=== PATIENT | female | born 1940 | race Caucasian/White ===

== ENCOUNTER → 2017-11-24 18:26 | Outpatient (REF) | payer OTHER, SELFPAY ==
[2017-11-24 19:26] LABS: HCT 38.3 % (36.0-46.0); HGB 12.5 g/dL (12.0-15.5); Mean Corp. HGB Concentration 32.6 g/dL (32.0-36.0); Mean Corpuscular Hemoglobin 30.3 pg (27.0-33.0); Mean Corpuscular Volume 92.7 fL (80-95); Mean Platelet Volume 11.2 fL (8.0-11.0); Platelet Count 213 x1000/uL (130-400); RBC 4.13 m/cumm (4.00-5.20); RBC Distribution Width 13.3 % (11.7-14.6); White Blood Cell Count 5.93 k/cumm (4.4-10.8)
[2017-11-24 19:35] LABS: BUN 37 mg/dL (7-18); CREATININE 1.32 mg/dL (0.55-1.02); Chloride 106 mmol/L (98-107); Estimated GFR 38.82 (mL/min/1.73m2); Glucose 86 mg/dL (70-100); Potassium 4.1 mmol/L (3.5-5.1); Sodium 142 mmol/L (136-145)
== END ==
LOC: NCHCN 18:26
PROVIDERS: PCP Nurse Practitioner Family; Visit Provider Nurse Practitioner Family
DX: N18.3 Chronic kidney disease, stage 3 (moderate) (principal); R23.8 Other skin changes; M54.30 Sciatica, unspecified side; J45.991 Cough variant asthma
CPT/HCPCS: 80048; 85027

== ENCOUNTER 2018-02-16 00:57 | Outpatient (CLI) | payer OTHER, SELFPAY ==
--- NOTE | 2018-02-16 11:18 | DI.US_ITS ---
SYMPTOM/DIAGNOSIS: CHRONIC KIDNEY DISEASE, H/O RENAL STONES, BILAT RENAL CYSTS , ? OBSTRUCTIVE UROPATHY, EVALUATE RENAL CYSTS RENAL ULTRASOUND: The kidneys are normal in size and shape. There is incidental note made of a small right pleural effusion. There is no evidence of hydronephrosis. There is a questionable right mid pole renal cortical calculus, non obstructing. There are 2.2 and 2.5 cm. in diameter simple cysts of the left kidney. Urinary bladder is nearly empty at about 18 cc's. CONCLUSION: Small pleural effusion on the right. No evidence of urinary tract obstruction. Small simple cysts of the left kidney noted.
[2018-02-16 19:24] LABS: Bilirubin Small (Negative); Blood Negative (Negative); Clarity Clear; Glucose Negative (Negative); Ketones Trace mg/dL (Negative); Leukocyte Esterase Negative (Negative); Nitrite Negative (Negative); Specific Gravity 1.025 (1.005-1.025); Urobilinogen 0.2 EU/dL (Up TO 0.2); pH 5.5 (5-8)
[2018-02-16 19:46] LABS: Bacteria Few HPF (Negative); C & S Indicated? No; Casts Negative LPF (Negative); Crystals Negative HPF (Negative); Epithelial Cells Rare HPF (Negative); Mucus Trace (Negative); Other Cells Negative (Negative); RBC 0-2 (0-2); WBC Negative HPF (0-5)
== END 2018-02-16 01:17 ==
PROVIDERS: Nurse Practitioner Family; PCP Nurse Practitioner Family; Visit Provider Internal Medicine
DX: N18.9 Chronic kidney disease, unspecified (principal); J90 Pleural effusion, not elsewhere classified; N28.1 Cyst of kidney, acquired; R30.0 Dysuria
CPT/HCPCS: 76770; 81003; 81015

== ENCOUNTER 2018-02-26 12:27 | Emergency (ER) | payer OTHER, SELFPAY ==
[2018-02-26 12:55] VITALS: BP 154/68; PULSE 58; RESP 18; TEMP 36.5; O2SAT 97
--- NOTE | 2018-02-26 13:15 | W.ED.GENAD ---
Discharge Plan Disposition Patient Disposition: HOME Condition: Fair Discharge Details Chief Complaint: Urinary Clinical Impression: Cystitis Primary Care Provider: Lila Ricardo ED Provider: Kamilah Henning Home Meds and New Rx's Prescriptions: No Action diltiazem HCl 120 MG tablet 120 mg PO DAILY RF: 0 meclizine 12.5 MG tablet 12.5 mg PO PRN RF: 0 loratadine 10 MG tablet 10 mg PO DAILY RF: 0 Citalopram Hydrobromide [Citalopram HBr] 40 MG tablet 40 mg PO DAILY RF: 0 metoprolol succinate 100 MG tablet extended release 24 hr 100 mg PO DAILY RF: 0 aspirin 81 MG tablet,delayed release (DR/EC) 81 mg PO DAILY RF: 0 hydrochlorothiazide 25 MG tablet 25 mg PO QAM RF: 0 omega-3 fatty acids-fish oil [Fish Oil] 1 EACH capsule 1 ea PO TID RF: 0 fhhgjxkw-atwix-kfm1-C-catalina-bor [Npsjdwfxzoa-Mctot-SSU Complex] 1 EACH tablet 1 ea PO BID RF: 0 albuterol sulfate 1.25 MG/3 ML solution for nebulization 1.25 mg Inhalation PRN PRNRF: 0 albuterol sulfate [Ventolin HFA] 8 GM HFA aerosol inhaler 2 puff Inhalation PRN PRNRF: 0 Discharge Data Discharge Date/Time-TO BE ENTERED AT DEPARTURE: 02/26/18 16:20 Medical Decision Making Patient is 77-year-old female, accompanied by significant other, with chief complaint of urinary tract infection. She reports she was seen by her primary care these complaints including bladder pressure, dysuria, hematuria, increased urgency and, at 1 week ago. Since that time she is placed on antibiotics. However, pending culture results, she was advised to stop these antibiotics. She reports that symptoms have progressively increased. Denies any vaginal discharge. States she is chronic, unchanged pain in her back. No CVA tenderness on exam. States that she felt like she may have had a fever 1 week ago but has been afebrile since then. She is currently afebrile. She appears nontoxic. Plan to obtain urinalysis for evaluation. Urinalysis is heavily contaminated. Discussed this with the patient. Plan to straight cath. Given the longevity of her symptoms, that she is not been experiencing increased frequency urgency, I am concerned that she may have cystitis, particularly as her recent urinalysis, performed last week by her primary care, did not suggest acute infection. She Was performed by nursing staff. Small leukocytes are noted but otherwise no findings to suggest infection. This will be sent for culture Consulted with Dr. Schmitz regarding my concerns for possible cystitis, patient's continued symptoms. He advised her history and lack of findings to suggest infection are consistent with cystitis. He advised placing the patient on ibuprofen. Patient will take daily ibuprofen to help with inflammatory source. He advised that if this is unsuccessful he will begin the patient on a bladder relaxant but that this would not be necessary today. Advised that Pyridium may also be used to help with symptomatic management. Advised patient follow-up with him in 1 week for reevaluation. Discussed this plan with the patient. She is in agreement. Patient be placed in a short term basis of ibuprofen. I advised that he should not be taken long-term secondary to her comorbidities. Encouraged hydration. Also advised the use of Pyridium. Patient's discharge was completed during the time of computer downtime and was hand written. She denied discussed new/worsening symptoms when to seek care urgently once again. She will contact Dr. Schmitz's office to schedule follow-up appointment. All of her questions and concerns were addressed and she is in agreement this plan. She will keep tomorrow's appointment with primary care to discuss other chronic conditions. HPI General Mode of arrival: ambulatory. Date/Time Provider Initiated Documentation: 02/26/18 13:12. Limitations to Documentation: no limitations. Information obtained by: patient and family (accompanied by ). History of Present Illness 77 year old F presents to the emergency department with the chief complaint of dysurea, described as mild, with intensity rated at 3. Quality is described as aching, and is localized to the abdomen (associated with times of urination). Patient reports no radiation. Patient started experiencing this week(s) and it has been constant. No relieving factors improve symptom(s), No exacerbating factors reported . Patient notes denies chest pain, cough, fever/chills, loss of appetite, nausea/vomiting and rash. Patient did receive the following treatments prior to arrival, other (was on abx last week, this was stopped by PCP) Related Data Home Medications Medication Instructions Recorded Confirmed albuterol sulfate 1.25 mg INHALATION PRN PRN 06/18/12 02/26/18 albuterol sulfate [Ventolin HFA] 2 puff INHALATION PRN PRN 06/18/12 02/26/18 aspirin 81 mg PO DAILY 06/18/12 02/26/18 rdgxasrk-wljao-jsn9-C-catalina-bor 1 ea PO BID 06/18/12 02/26/18 [Rnwxmqypaqs-Ogheq-YME Complex] hydrochlorothiazide 25 mg PO QAM 06/18/12 03/05/17 metoprolol succinate 100 mg PO DAILY 06/18/12 02/26/18 omega-3 fatty acids-fish oil [Fish 1 ea PO TID 06/18/12 02/26/18 Oil] diltiazem HCl 120 mg PO DAILY tab-cap 01/18/13 02/26/18 Citalopram Hydrobromide 40 mg PO DAILY tab-cap 04/02/17 02/26/18 [Citalopram HBr] loratadine 10 mg PO DAILY tab-cap 04/02/17 02/26/18 meclizine 12.5 mg PO PRN 04/02/17 02/26/18 Allergies Allergy/AdvReac Type Severity Reaction Status Date / Time Sulfa (Sulfonamide Allergy Unknown Unverified 02/26/18 13:02 Antibiotics) oxycodone HCl [From Percocet] AdvReac Dizziness/L Unverified 02/26/18 13:02 ightheade zonisamide [From Zonegran] AdvReac Nausea Unverified 02/26/18 13:02 General Stated Complaint: Urinary MAGALI: 4 Review of Systems Constitutional Reports as per HPI, Denies chills, Denies fever(s) and Denies poor appetite Cardiovascular Denies chest pain Respiratory Denies cough Gastrointestinal Denies abdominal pain, Denies change in bowel habits, Denies nausea and Denies vomiting Genitourinary Reports as per HPI Musculoskeletal Reports as per HPI and Reports back pain (endorses chronic, low back pain, no acute change in this ) Integumentary/Breasts Reports as per HPI and Denies rash [facility] Social History Smoking/Tobacco Use Status: Former Tobacco Use Social History Smoking/Tobacco Use Status: Former Tobacco Use Exam Const General: cooperative, healthy appearing, comfortable, no acute distress, well developed and well groomed Nutritional Appearance: average body habitus and well nourished Orientation: alert and awake Resp Effort & Inspection: normal respiratory effort and no respiratory distress Auscultation: clear to auscultation bilaterally, no rales, no rhonchi and no wheezes Cardio Rate: regular rate Rhythm: regular rhythm Heart Sounds: S1 normal and S2 normal GI Inspection: normal to inspection Palpation: soft, no hepatosplenomegaly, not firm, no guarding, not rigid and nontender Back/Spine/Pelvis Back: no CVA tenderness Skin General skin exam: no rashes or lesions noted Trauma: no lacerations or abrasions Neuro General: alert and awake Cognition: normal cognition Speech: speech normal Gait: normal gait Psych Appearance: grossly normal and well kempt Mental Status: mental status grossly normal Speech and Movement: speech and movement normal Course Vital Signs Temperature 36.5 C 02/26/18 12:55 Pulse 58 L 02/26/18 12:55 Respiratory Rate 18 02/26/18 12:55 Blood Pressure 154/68 H 02/26/18 12:55 Pulse Oximetry 97 02/26/18 12:55 Temperature 36.5 C 02/26/18 12:55 Temperature Source Skin 02/26/18 12:55 Pulse 58 L 02/26/18 12:55 Respiratory Rate 18 02/26/18 12:55 Respiratory Effort 02/26/18 13:00 Blood Pressure 154/68 H 02/26/18 12:55 Blood Pressure Position Sitting 02/26/18 12:55 Pulse Oximetry 97 02/26/18 12:55 Oxygen Delivery Method Room Air 02/26/18 12:55 Oxygen Flow Rate 0 02/26/18 12:55 Pain Level 2 02/26/18 13:01 Comment 02/26/18 12:55
[2018-02-26 13:27] LABS: Bilirubin Small (Negative); Blood Large (Negative); Clarity Cloudy; Glucose Negative (Negative); Ketones Negative (Negative); Leukocyte Esterase Large (Negative); Nitrite Negative (Negative); Urobilinogen 0.2 EU/dL (Up TO 0.2)
--- NOTE | 2018-02-26 13:34 | ED.GENADUL_ITS ---
Discharge Plan Disposition Patient Disposition: HOME Condition: Fair Discharge Details Chief Complaint: Urinary Clinical Impression: Cystitis Primary Care Provider: Lila Ricardo ED Provider: Kamilah Henning Home Meds and New Rx's Prescriptions: No Action diltiazem HCl 120 MG tablet 120 mg PO DAILY RF: 0 meclizine 12.5 MG tablet 12.5 mg PO PRN RF: 0 loratadine 10 MG tablet 10 mg PO DAILY RF: 0 Citalopram Hydrobromide [Citalopram HBr] 40 MG tablet 40 mg PO DAILY RF: 0 metoprolol succinate 100 MG tablet extended release 24 hr 100 mg PO DAILY RF: 0 aspirin 81 MG tablet,delayed release (DR/EC) 81 mg PO DAILY RF: 0 hydrochlorothiazide 25 MG tablet 25 mg PO QAM RF: 0 omega-3 fatty acids-fish oil [Fish Oil] 1 EACH capsule 1 ea PO TID RF: 0 mngbjdpf-bnbyk-sgw2-C-catalina-bor [Nxnfjxzvznc-Gvwfv-HGT Complex] 1 EACH tablet 1 ea PO BID RF: 0 albuterol sulfate 1.25 MG/3 ML solution for nebulization 1.25 mg Inhalation PRN PRNRF: 0 albuterol sulfate [Ventolin HFA] 8 GM HFA aerosol inhaler 2 puff Inhalation PRN PRNRF: 0 Discharge Data Discharge Date/Time-TO BE ENTERED AT DEPARTURE: 02/26/18 16:20 Medical Decision Making Patient is 77-year-old female, accompanied by significant other, with chief complaint of urinary tract infection. She reports she was seen by her primary care these complaints including bladder pressure, dysuria, hematuria, increased urgency and, at 1 week ago. Since that time she is placed on antibiotics. However, pending culture results, she was advised to stop these antibiotics. She reports that symptoms have progressively increased. Denies any vaginal discharge. States she is chronic, unchanged pain in her back. No CVA tenderness on exam. States that she felt like she may have had a fever 1 week ago but has been afebrile since then. She is currently afebrile. She appears nontoxic. Plan to obtain urinalysis for evaluation. Urinalysis is heavily contaminated. Discussed this with the patient. Plan to straight cath. Given the longevity of her symptoms, that she is not been experiencing increased frequency urgency, I am concerned that she may have cystitis, particularly as her recent urinalysis, performed last week by her primary care, did not suggest acute infection. She Was performed by nursing staff. Small leukocytes are noted but otherwise no findings to suggest infection. This will be sent for culture Consulted with Dr. Schmitz regarding my concerns for possible cystitis, patient's continued symptoms. He advised her history and lack of findings to suggest infection are consistent with cystitis. He advised placing the patient on ibuprofen. Patient will take daily ibuprofen to help with inflammatory source. He advised that if this is unsuccessful he will begin the patient on a bladder relaxant but that this would not be necessary today. Advised that Pyridium may also be used to help with symptomatic management. Advised patient follow-up with him in 1 week for reevaluation. Discussed this plan with the patient. She is in agreement. Patient be placed in a short term basis of ibuprofen. I advised that he should not be taken long- term secondary to her comorbidities. Encouraged hydration. Also advised the use of Pyridium. Patient's discharge was completed during the time of computer downtime and was hand written. She denied discussed new/worsening symptoms when to seek care urgently once again. She will contact Dr. Schmitz's office to schedule follow-up appointment. All of her questions and concerns were addressed and she is in agreement this plan. She will keep tomorrow's appointment with primary care to discuss other chronic conditions. HPI General Mode of arrival: ambulatory . Date/Time Provider Initiated Documentation: 02/26/18 13:12 . Limitations to Documentation: no limitations . Information obtained by: patient and family (accompanied by ) . History of Present Illness 77 year old F presents to the emergency department with the chief complaint of dysurea, described as mild, with intensity rated at 3. Quality is described as aching, and is localized to the abdomen (associated with times of urination). Patient reports no radiation. Patient started experiencing this week(s) and it has been constant. No relieving factors improve symptom( s), No exacerbating factors reported . Patient notes denies chest pain, cough, fever/chills, loss of appetite, nausea/vomiting and rash. Patient did receive the following treatments prior to arrival, other (was on abx last week , this was stopped by PCP) Related Data Home Medications Medication Instructions Recorded Confirmed albuterol sulfate 1.25 mg INHALATION PRN PRN 06/18/12 02/26/18 albuterol sulfate [Ventolin HFA] 2 puff INHALATION PRN PRN 06/18/12 02/26/18 aspirin 81 mg PO DAILY 06/18/12 02/26/18 pieecziz-bttab-bgg9-C-catalina-bor 1 ea PO BID 06/18/12 02/26/18 [Cirrgvflgod-Oscjl-YSD Complex] hydrochlorothiazide 25 mg PO QAM 06/18/12 03/05/17 metoprolol succinate 100 mg PO DAILY 06/18/12 02/26/18 omega-3 fatty acids-fish oil [Fish 1 ea PO TID 06/18/12 02/26/18 Oil] diltiazem HCl 120 mg PO DAILY tab-cap 01/18/13 02/26/18 Citalopram Hydrobromide 40 mg PO DAILY tab-cap 04/02/17 02/26/18 [Citalopram HBr] loratadine 10 mg PO DAILY tab-cap 04/02/17 02/26/18 meclizine 12.5 mg PO PRN 04/02/17 02/26/18 Allergies Allergy/AdvReac Type Severity Reaction Status Date / Time Sulfa (Sulfonamide Allergy Unknown Unverified 02/26/18 13:02 Antibiotics) oxycodone HCl [From Percocet] AdvReac Dizziness/L Unverified 02/26/18 13:02 ightheade zonisamide [From Zonegran] AdvReac Nausea Unverified 02/26/18 13:02 General Stated Complaint: Urinary MAGALI: 4 Review of Systems Constitutional Reports as per HPI, Denies chills, Denies fever(s) and Denies poor appetite Cardiovascular Denies chest pain Respiratory Denies cough Gastrointestinal Denies abdominal pain, Denies change in bowel habits, Denies nausea and Denies vomiting Genitourinary Reports as per HPI Musculoskeletal Reports as per HPI and Reports back pain (endorses chronic, low back pain, no acute change in this ) Integumentary/Breasts Reports as per HPI and Denies rash [facility] [place] Social History Smoking/Tobacco Use Status: Former Tobacco Use Social History Smoking/Tobacco Use Status: Former Tobacco Use Exam Const General: cooperative, healthy appearing, comfortable, no acute distress, well developed and well groomed Nutritional Appearance: average body habitus and well nourished Orientation: alert and awake Resp Effort & Inspection: normal respiratory effort and no respiratory distress Auscultation: clear to auscultation bilaterally, no rales, no rhonchi and no wheezes Cardio Rate: regular rate Rhythm: regular rhythm Heart Sounds: S1 normal and S2 normal GI Inspection: normal to inspection Palpation: soft, no hepatosplenomegaly, not firm, no guarding, not rigid and nontender Back/Spine/Pelvis Back: no CVA tenderness Skin General skin exam: no rashes or lesions noted Trauma: no lacerations or abrasions Neuro General: alert and awake Cognition: normal cognition Speech: speech normal Gait: normal gait Psych Appearance: grossly normal and well kempt Mental Status: mental status grossly normal Speech and Movement: speech and movement normal Course Vital Signs Temperature 36.5 C 02/26/18 12:55 Pulse 58 L 02/26/18 12:55 Respiratory Rate 18 02/26/18 12:55 Blood Pressure 154/68 H 02/26/18 12:55 Pulse Oximetry 97 02/26/18 12:55 Temperature 36.5 C 02/26/18 12:55 Temperature Source Skin 02/26/18 12:55 Pulse 58 L 02/26/18 12:55 Respiratory Rate 18 02/26/18 12:55 Respiratory Effort 02/26/18 13:00 Blood Pressure 154/68 H 02/26/18 12:55 Blood Pressure Position Sitting 02/26/18 12:55 Pulse Oximetry 97 02/26/18 12:55 Oxygen Delivery Method Room Air 02/26/18 12:55 Oxygen Flow Rate 0 02/26/18 12:55 Pain Level 2 02/26/18 13:01 Comment 02/26/18 12:55
[2018-02-26 13:37] LABS: RBC >50 (0-2); WBC >50 HPF (0-5)
[2018-02-26 13:38] LABS: Bacteria Negative HPF (Negative); C & S Indicated? No/Sq. Contamination; Casts Negative LPF (Negative); Crystals Negative HPF (Negative); Epithelial Cells Many HPF (Negative); Mucus Negative (Negative)
[2018-02-26 14:53] LABS: Bilirubin Negative (Negative); Blood Large (Negative); Clarity Cloudy; Glucose Negative (Negative); Ketones Negative (Negative); Leukocyte Esterase Small (Negative); Nitrite Negative (Negative); Urobilinogen 0.2 EU/dL (Up TO 0.2)
[2018-02-26 15:11] LABS: Bacteria Rare HPF (Negative); C & S Indicated? No; Casts Negative LPF (Negative); Crystals Negative HPF (Negative); Epithelial Cells Rare HPF (Negative); Mucus Negative (Negative); Other Cells Negative (Negative); RBC >50 (0-2)
[2018-02-26 17:00] VITALS: BP 148/71; PULSE 62; RESP 18; TEMP 36.7; O2SAT 97
== END 2018-02-26 16:20 | disposition home or self-care (01) ==
LOC: ER 16:39
PROVIDERS: Emergency Provider Physician Assistant; PCP Nurse Practitioner Family
DX: N30.01 Acute cystitis with hematuria (principal); B96.20 Unspecified Escherichia coli [E. coli] as the cause of diseases classified elsewhere
CPT/HCPCS: 51701; 87077; 99283; 81003; 81015; 87086; 87186

== ENCOUNTER 2018-03-02 20:46 | Emergency (ER) | payer OTHER, SELFPAY ==
[2018-03-02 20:49] VITALS: O2SAT 96
[2018-03-02 20:52] VITALS: BP 170/86; PULSE 74; RESP 16; TEMP 36; O2SAT 96
[2018-03-02 20:58] VITALS: RESP 18
--- NOTE | 2018-03-02 21:55 | ED.GENADUL_ITS ---
Discharge Plan Disposition Patient Disposition: HOME Condition: Stable Discharge Details Chief Complaint: GenMedical Clinical Impression: Early satiety, Dysphagia Primary Care Provider: Lila Ricardo ED Provider: Sabrina Wilson Home Meds and New Rx's Prescriptions: No Action diltiazem HCl 120 MG tablet 120 mg PO DAILY RF: 0 meclizine 12.5 MG tablet 12.5 mg PO PRN RF: 0 loratadine 10 MG tablet 10 mg PO DAILY RF: 0 Citalopram Hydrobromide [Citalopram HBr] 40 MG tablet 40 mg PO DAILY RF: 0 ciprofloxacin HCl 250 mg tablet 250 mg PO BID Qty: 20 RF: 0 metoprolol succinate 100 MG tablet extended release 24 hr 100 mg PO DAILY RF: 0 hydrochlorothiazide 25 MG tablet 25 mg PO QAM RF: 0 omega-3 fatty acids-fish oil [Fish Oil] 1 EACH capsule 1 ea PO TID RF: 0 njfhuasm-gddev-zxw7-C-catalina-bor [Yxsvwjhvfhh-Xkvhr-VQH Complex] 1 EACH tablet 1 ea PO BID RF: 0 albuterol sulfate 1.25 MG/3 ML solution for nebulization 1.25 mg Inhalation PRN PRNRF: 0 albuterol sulfate [Ventolin HFA] 8 GM HFA aerosol inhaler 2 puff Inhalation PRN PRNRF: 0 ranitidine HCl 75 mg Tablet 75 mg PO BID PRNRF: 0 gabapentin 300 mg Capsule 300 mg PO TID RF: 0 losartan 100 mg Tablet 100 mg PO DAILY RF: 0 Discharge Instructions Instructions: Dysphagia (ED) Additional Instructions: You will receive a call from care management regarding a possible earlier follow up appointment with surgery. You can also call the surgery office to see if they will see you before your scheduled appointment next week. Drink plenty of fluids, including your ensure to help with nutrition. Take the cipro until finished. Be sure to wait a few hours after taking cipro to drink Ensure. Follow up with your scheduled appointment with Dr. Schmitz next week. Return to the emergency department with any worsening or new concerning symptoms. Discharge Data Discharge Physician: Sabrina Wilson Medical Decision Making 77yo F w/ early satiety, food aversion, and possible difficulty swallowing for the past couple weeks. History is confusion at times and pt states she feels hungry so it is not a lack of appetite and she can physically swallow liquids and was able to eat eggs tonight so anatomically it appears that her swallowing function is normal. There is no drooling and she is able to swallow her secretions and airway intact. She also only rarely has epigastric pain and did not really even mention this without asking, so an ulcer may be unlikely. It seems when she describes her issue, she has no interest in eating any foods, but does feel hungry and then attempts to eat but feels full easily and with little food. The differential diagnosis would include esophageal dysmotility, achalasia, esophagitis, gastritic, PUD. Ultimately, pt will need an endoscopy and she has an appointment with off and on March 12 or . Family brought her here tonjulian because they are concerned about her not eating until then. As she is able to eat some liquids and solids, her vitals are within normal limits, she appears nontoxic, I likely do not see any acute need for admission, but can place an IV, give bolus IV fluids and check lab work to rule out electrolyte abnormality or dehydration. We will also recheck a urinalysis as she was recently diagnosed with UTI and urine culture noted 50,000-100,000 e coli colonies. Patient was told by the pharmacist that she cannot take Ensure due to taking Cipro. The E. coli result was a sensitive to Macrobid so we may consider stretching her antibiotic to Macrobid so she can take the Ensure which may be easier for her. I discussed with Dr. Solano who states that she will attempt to see if patient can be seen earlier, but as of now her schedule is booked but she can call the office to attempt to get in sooner. 2310 --labs reviewed and unremarkable. White blood cell count 8. Creatinine 1.21. Urinalysis notes positive nitrite, trace leukocyte esterase, 3-5 WBCs, negative epithelial cells and bacteria. We will recommend the patient continue taking the Cipro due to recent positive urine blood culture with E. coli. Patient recommended to take the Cipro and ensure hours separate from each other as pharmacist directed. Chest x-ray notes a very small b/l pleural effusions. Pt has no c/o sob with normal RR and O2 saturation. Instructed to drink plenty of fluids and eat small meals as tolerated to keep up her nutrition. Family states that he will continue to encourage patient to try to eat. Will place pt on care management list to help facilitate pt possibly getting an earlier appointment as family is concerned about her not eating until appointment 03/12 or 03/13. Pt was able to drink water here. Instructed to return to the emergency department any worsening or new concerning symptoms. HPI General Mode of arrival: ambulatory . Date/Time Provider Initiated Documentation: 03/02/18 20:55 . Limitations to Documentation: no limitations . Information obtained by: patient and family . HPI Narrative: Patient is a 77-year-old female who presents with a complaint of difficulty swallowing, food aversion, and early satiety for the past 2 weeks. Patient states I cannot eat and I feel full . Patient states she is physically able to swallow but states she takes small bites of food and then feels full. Patient states she has no appetite for anything. Patient denies any fever, sore throat, neck pain, chest pain, shortness of breath, abdominal pain, vomiting or diarrhea. She does admit to occasional nausea. Patient was seen here a few days ago for dysuria and was diagnosed with cystitis but was not given antibiotics as urinalysis is negative. Patient was called by Dr. Schmitz's office today and given Cipro for the positive urine culture result. Patient states she only took one dose. Patient states she had been drinking Ensure to help with her nutrition but was told by the pharmacist that she should not be taking Ensure with the Cipro. Patient denies any urinary symptoms at present. Family states that patient saw her PCP office for the complaint of difficulty with eating and she has a follow-up appointment with Dr. Alexander for this complaint on March 12 or . Family brought patient here tonight because they are concerned about patient not eating until her appointment with surgery. Related Data Home Medications Medication Instructions Recorded Confirmed albuterol sulfate 1.25 mg INHALATION PRN PRN 06/18/12 03/02/18 albuterol sulfate [Ventolin HFA] 2 puff INHALATION PRN PRN 06/18/12 03/02/18 djjcvenm-doqqk-lcf1-C-catalina-bor 1 ea PO BID 06/18/12 03/02/18 [Xobsxajxkcx-Ialri-GBO Complex] hydrochlorothiazide 25 mg PO QAM 06/18/12 03/02/18 metoprolol succinate 100 mg PO DAILY 06/18/12 03/02/18 omega-3 fatty acids-fish oil [Fish 1 ea PO TID 06/18/12 03/02/18 Oil] diltiazem HCl 120 mg PO DAILY tab-cap 01/18/13 03/02/18 Citalopram Hydrobromide 40 mg PO DAILY tab-cap 04/02/17 03/02/18 [Citalopram HBr] loratadine 10 mg PO DAILY tab-cap 04/02/17 03/02/18 meclizine 12.5 mg PO PRN 04/02/17 03/02/18 ciprofloxacin 250 mg tablet 250 mg PO BID #20 tab 03/02/18 03/02/18 gabapentin 300 mg PO TID 03/02/18 03/02/18 losartan 100 mg PO DAILY 03/02/18 03/02/18 ranitidine HCl 75 mg PO BID PRN 03/02/18 03/02/18 Previous Rx's Medication Instructions Recorded ciprofloxacin 250 mg tablet 250 mg PO BID #20 tab 03/02/18 Allergies Allergy/AdvReac Type Severity Reaction Status Date / Time Sulfa (Sulfonamide Allergy Unknown Unverified 03/02/18 20:57 Antibiotics) oxycodone HCl [From Percocet] AdvReac Dizziness/L Unverified 03/02/18 20:57 ightheade zonisamide [From Zonegran] AdvReac Nausea Unverified 03/02/18 20:57 General Stated Complaint: GenMedical MAGALI: 3 Review of Systems Review of Systems All systems reviewed & are unremarkable except as noted in HPI and below Constitutional Denies chills, Denies excessive sweating, Denies fatigue, Denies fever(s), Denies weakness and Denies weight loss Eyes Reports system reviewed and no additional complaints, except as docu and Denies blurry vision ENT Denies vertigo, Denies dizziness, Denies otalgia, Denies nasal congestion, Denies sore throat and Denies throat swelling Cardiovascular Denies chest pain, Denies syncope, Denies rapid heart rate and Denies dyspnea Respiratory Denies dyspnea Gastrointestinal Denies abdominal pain, Denies diarrhea and Denies vomiting Genitourinary Denies hematuria, Denies dysuria and Denies flank pain Musculoskeletal Denies back pain and Denies joint swelling Integumentary/Breasts Denies lesions and Denies rash Neurologic Denies behavioral changes, Denies confusion, Denies vertigo, Denies dizziness, Denies syncope and Denies weakness Psychiatric Denies behavioral changes, Denies confusion and Denies depression Endocrine Denies excessive sweating and Denies fatigue Hematologic/Lymphatic Denies easy bruising and Denies lymphadenopathy Allergic/Immunologic Denies throat swelling [facility] Social History Smoking/Tobacco Use Status: Former Tobacco Use Social History Smoking/Tobacco Use Status: Former Tobacco Use Exam Const General: cooperative and healthy appearing Orientation: alert and awake HENMT Head: normal to inspection Ears: hearing grossly normal bilaterally, external ears normal and TM's normal bilaterally General nose exam: external nose normal Face and sinus: normal facial exam Mouth: oral mucosae normal Teeth and gingiva: dentition normal Throat: posterior oropharynx normal Eyes General: appearance normal, both eyes and all related structures Eyelids: eyelids normal EOM: EOM intact bilaterally Neck Neck: normal visual inspection and No submandibular swelling Lymphatic: no lymphadenopathy noted Chest Chest: normal inspection of the chest Resp Effort & Inspection: normal respiratory effort and able to speak in complete sentences Auscultation: clear to auscultation bilaterally Cardio Rate: regular rate Rhythm: regular rhythm GI Inspection: normal to inspection Palpation: soft, not firm, no guarding, no hepatosplenomegaly, no masses and nontender Auscultation: normal bowel sounds Skin General skin exam: no rashes or lesions noted Neuro General: alert and awake Cognition: normal cognition Speech: speech normal Gait: normal gait Motor: muscle tone normal throughout Sensory Exam: no sensory deficits noted Extrem General: normal to inspection, full ROM and normal capillary refill Psych Appearance: grossly normal Mental Status: mental status grossly normal Speech and Movement: speech and movement normal Affect: normal affect Thought Process: normal Course Vital Signs Temperature 96.8 F L 03/02/18 20:52 Pulse 74 03/02/18 20:52 Respiratory Rate 16 03/02/18 20:52 Blood Pressure 170/86 H 03/02/18 20:52 Pulse Oximetry 96 03/02/18 20:52 Temperature 96.8 F L 03/02/18 20:52 Temperature Source Skin 03/02/18 20:52 Pulse 74 03/02/18 20:52 Respiratory Rate 18 03/02/18 20:58 Respiratory Effort Non-Labored 03/02/18 20:58 Respiratory Depth Normal 03/02/18 20:58 Blood Pressure 170/86 H 03/02/18 20:52 Pulse Oximetry 96 03/02/18 20:52 Oxygen Delivery Method Room Air 03/02/18 20:52 Oxygen Flow Rate 0 03/02/18 20:52
--- NOTE | 2018-03-02 21:57 | DI.RAD_ITS ---
SYMPTOMS/DIAGNOSIS: DIFFICULTY SWALLOWING, ? ACUTE DISEASE VERSUS MASS CHEST X-RAY: Comparison is 04/14/17. The heart size is within normal limits, as is the pulmonary vasculature. There are small bilateral pleural effusions, left greater than right. No focal consolidating infiltrates are seen. There is a question of mild prominence of the interstitium. This may represent mild pulmonary edema. The bones are intact. Degenerative changes are seen in the spine. The lungs are hyperinflated, suggesting underlying COPD. IMPRESSION: 1. Small bilateral pleural effusions, left greater than right. 2. Question of mild pulmonary venous congestion.
[2018-03-02] MEDS: Prochlorperazine 10 MG/2 ML VIAL IVP (22:12)
[2018-03-02] MEDS: Normal Saline 1,000 ML 1000 ML IV (22:40)
[2018-03-02 22:41] LABS: Abs Immature Grans 0.03 k/cumm (0.0-0.09); Absolute Basophil Count 0.03 k/cumm (0.0-0.2); Absolute Eosinophil Count 0.09 k/cumm (0.0-0.7); Absolute Lymphocyte Count 1.06 k/cumm (1.2-3.4); Absolute Monocyte Count 0.95 k/cumm (0.11-0.7); Absolute Neutrophil Count 6.57 k/cumm (1.2-6.7); Basophils % 0.3; HCT 38.1 % (36.0-46.0); HGB 12.3 g/dL (12.0-15.5); Immature Grans % 0.3; Lymphocytes % 12.1; Mean Corp. HGB Concentration 32.3 g/dL (32.0-36.0); Mean Corpuscular Hemoglobin 29.1 pg (27.0-33.0); Mean Corpuscular Volume 90.1 fL (80-95); Mean Platelet Volume 10.3 fL (8.0-11.0); Monocytes % 10.9; Neutrophils % 75.4; Platelet Count 232 x1000/uL (130-400); RBC 4.23 m/cumm (4.00-5.20); RBC Distribution Width 12.9 % (11.7-14.6); White Blood Cell Count 8.73 k/cumm (4.4-10.8)
[2018-03-02 22:55] LABS: ALT 15 U/L (12-78); AST 30 U/L (15-37); Alkaline Phosphatase 178 U/L (46-116); Anion Gap 9.8 mmol/L (3-11); BUN 21 mg/dL (7-18); Bilirubin, Total 0.5 mg/dL (0.2-1.0); CO2 28.2 mmol/L (21.0-32.0); CREATININE 1.21 mg/dL (0.55-1.02); Calcium 9.6 mg/dL (8.5-10.1); Chloride 103 mmol/L (98-107); Estimated GFR 42.92 (mL/min/1.73m2); Glucose 112 mg/dL (70-100); Potassium 4.2 mmol/L (3.5-5.1); Sodium 141 mmol/L (136-145)
[2018-03-02 23:02] LABS: Bilirubin Negative (Negative); Blood Small (Negative); Clarity Clear; Glucose Negative (Negative); Ketones Trace mg/dL (Negative); Leukocyte Esterase Trace (Negative); Nitrite Positive (Negative); Specific Gravity 1.025 (1.005-1.025); Urobilinogen 0.2 EU/dL (Up TO 0.2); pH 6.5 (5-8)
[2018-03-02 23:10] LABS: Bacteria Negative HPF (Negative); C & S Indicated? No; Casts Negative LPF (Negative); Crystals Negative HPF (Negative); Epithelial Cells Negative HPF (Negative); Mucus Negative (Negative)
--- NOTE | 2018-03-02 23:12 | DI.VRAD_ITS ---
EXAM: XR Chest, 2 Views EXAM DATE/TIME: 03/02/2018 9:58 PM CLINICAL HISTORY: 77 years old, female; Signs and symptoms; Shortness of breath and other: Difficulty swallowing; Patient HX: Difficulty swallowing; Per PT: Shortness of breath; Additional info: R/O acute disease vs mass TECHNIQUE: XR of the chest, 2 views. COMPARISON: CR CHEST 2 VIEWS PA,LAT 04/14/2017 2:15 PM FINDINGS: Lungs: Very subtle interstitial markings. Pleural space: Costophrenic angles are blunted. Heart/Mediastinum: Unremarkable. Heart size within normal limits for technique. Bones/joints: Unremarkable. No evidence of acute fracture. IMPRESSION: 1. possibly very mild pulmonary edema. 2. Very small right pleural effusion. 3. Small left pleural effusion. Dictated and Authenticated by: Devin Ray MD. Ordering:GAGAN VARELA MD
== END 2018-03-03 00:27 | disposition home or self-care (01) ==
PROVIDERS: Emergency Provider Physician Assistant; PCP Nurse Practitioner Family
DX: R13.10 Dysphagia, unspecified (principal); R68.81 Early satiety; N39.0 Urinary tract infection, site not specified; I10 Essential (primary) hypertension
CPT/HCPCS: 36415; 51701; 80053; 96361; 96374; 99284; 71046; 81003; 81015; 85025; 87086; 99285; J0780

== ENCOUNTER 2018-03-06 11:30 | Outpatient (CLI) | payer OTHER, SELFPAY | END 2018-03-06 11:50 | PROVIDERS: PCP Nurse Practitioner Family; Visit Provider Physical Therapy Assistant | DX: R13.10 Dysphagia, unspecified (principal) | CPT/HCPCS: 99213 ==

== ENCOUNTER 2018-03-12 11:40 | Day surgery (SDC) | payer OTHER, SELFPAY ==
--- NOTE | 2018-03-12 11:08 | ENDO_ITS ---
Date of service: 03/12/18 Time of Service: 13:00 Endoscopy Report DATE OF PROCEDURE: 03/12/18 PRE-OP DIAGNOSIS: early satiety POST-OP DIAGNOSIS: other (erosive gastritis, esophagitis and duodenitis) PROCEDURE: EGD with biopsies SURGEON: Nan Solano ANESTHESIA: MAC (Eloise Diaz, [employer] /ASA 2) ESTIMATED BLOOD LOSS: 3 PATHOLOGY: other (duodenal bx, gastric bx, GE junction bx) COMPLICATIONS: None DISPOSITION: same day INDICATIONS: Mrs. Velasquez is a pleasant 77 year old female with early satiety. Risks, benefits and complications have been reviewed. Complications include but are not limited to bleeding, pain, perforation, sore throat, aspiration, and adverse reaction to the medications. Questions were entertained and answered to their satisfaction and they wished to proceed. No guarantees were given or implied. PROCEDURE START TIME: 13:10 PROCEDURE END TIME: :17 FINDINGS: 1. Erosive gastritis with ulcers 2. duodenitis 3. esophagitis PROCEDURE DESCRIPTION: After informed consent was obtained the patient was take to the procedure room and placed in a supine position. Monitors were applied and a time out was done. The patients name, date of , procedure type, allergies to medications and metal in their body was reviewed. A bite block was placed and the patient was sedated. Once sedated and comfortable the gastroscope was advanced through the oropharynx which was grossly normal into the esophagus. The proximal and mid-esophagus were normal. In the distal esophagus there was inflammation noted. The scope was advanced into the stomach and through the pylorus into the 3rd portion of the duodenum. The duodenum was noted to have inflammation throughout. Biopsies were done in the 3rd and 2nd portion of the duodenum. The scope was retracted back into the stomach and biopsies were done of the antrum and body of the stomach as well as ulcers, to r ule out H. pylori. There were 2 ulcers in the body of the stomach. The scope was retroflexed. The cardia and fundus were noted to be normal. There was a small 3 cm hiatal hernia noted. The scope was retracted back into the esophagus and biopsies were done of the GE junction to rule out Monk's. The Z line was irregular. The GE junction was at 35 cm. The scope was removed and the patient was woken up and taken back to [facility] in stable condition. Follow up: 2 weeks in the office. Patient will be started on Omeprazole 40 mg BID. Stop Ranitidine.
--- NOTE | 2018-03-12 11:22 | W.PM.DSUDISC ---
Discharge Plan Disposition Patient Disposition: HOME Condition: Good Discharge Details Reason For Visit: early satiety Attending Provider: Nan Solano Primary Care Provider: Lila Ricardo Home Meds and New Rx's Prescriptions: New pantoprazole [Protonix] 40 mg tablet,delayed release (DR/EC) 40 mg PO BID Qty: 60 RF: 2 Continued diltiazem HCl 120 MG tablet 120 mg PO DAILY RF: 0 meclizine 12.5 MG tablet 12.5 mg PO PRN RF: 0 loratadine 10 MG tablet 10 mg PO DAILY PRNRF: 0 Citalopram Hydrobromide [Citalopram HBr] 40 MG tablet 40 mg PO DAILY RF: 0 ciprofloxacin HCl 250 mg tablet 250 mg PO BID Qty: 20 RF: 0 metoprolol succinate 100 MG tablet extended release 24 hr 100 mg PO DAILY RF: 0 hydrochlorothiazide 25 MG tablet 25 mg PO QAM RF: 0 omega-3 fatty acids-fish oil [Fish Oil] 1 EACH capsule 1 ea PO TID RF: 0 Ilpgrfmrbia-Xjzkg-AWS Complex 1 EACH tablet 1 ea PO BID RF: 0 albuterol sulfate 1.25 MG/3 ML solution for nebulization 1.25 mg Inhalation PRN PRNRF: 0 Ventolin HFA 8 GM HFA aerosol inhaler 2 puff Inhalation PRN PRNRF: 0 gabapentin 300 mg Capsule 300 mg PO TID RF: 0 losartan 100 mg Tablet 100 mg PO DAILY RF: 0 Discontinued ranitidine HCl 75 mg Tablet 75 mg PO BID PRNRF: 0 Discharge Instructions Instructions: Upper Endoscopy (DC), Duodenitis (DC), Gastritis (DC), Diet for Stomach Ulcers and Gastritis (GEN), Peptic Ulcer (DC), Esophagitis (DC) Additional Instructions: Findings: Severe inflammation of the stomach Inflammation of the small bowel and esophagus Ulcers in the stomach Follow up: 2-3 weeks Please call if you develop: fevers >101.5 Nausea or Vomiting Shortness of breath Abdominal pain that is not transient DAY SURGERY UNIT POST COLONOSCOPY INSTRUCTIONS 1. Because there will be medication in your system for the next 24 hours, you may feel a little sleepy. Your coordination will be affected. Therefore: a. Do not drive or operate dangerous equipment for 24 hours. b. Do not drink alcohol beverages for 24 hours (not even beer). c. Plan to go home and rest for the day. 2. Generally there are no restrictions on your activity after a day or so has gone by, but you may feel a bit fatigued for a few days. 3 After you arrive home you may have a light meal and return to a normal diet as you can tolerate it without feeling sick to your stomach. 4. After surgery, you may feel pain or discomfort. This should be only transient, but if it persists please contact your doctor. 5. If there are any questions regarding the findings of your procedure, please feel free to contact your doctor. 6. If you are unable to contact your doctor with a problem, contact the ospital at [phone]. 7. Continue all your regular medications unless directed otherwise. I understand the above instructions and have no questions. Signature of Patient or Responsible Adult Escort Date/Time Name of Responsible Adult Escort Signature of Nurse Date/Time Referrals: Nan Solano MD [ [facility] STAFF PHYSICIAN] - (2-3 weeks) Activity:: Activity as Tolerated Diet:: low acid Discharge Orders Discharge Orders: Discharge Order (Routine); Ordered 03/12/18 Ordered By: Nan Solano DS: Diagnosis Discharge Diagnosis (1) Esophagitis: Status: Acute (2) Duodenitis: Status: Acute (3) Acute erosive gastritis: Status: Acute (4) Abnormal findings on esophagogastroduodenoscopy (EGD): Status: Acute
[2018-03-12 11:57] VITALS: BP 117/61; PULSE 97; RESP 18; TEMP 35.6; O2SAT 99
[2018-03-12] MEDS: Lactated Ringers 1,000 ML 80 ML IV (12:55)
--- NOTE | 2018-03-12 13:11 | STOM_PTH ---
PATIENT: SABINO BABCOCK LOC: [facility] U#:[id number] AGE/SX: 77/F ROOM: RE03/12/[address]: Nan Solano MD : 1940 BED: DIS: 03/12/2018 SPEC #: [id number] RECD: 03/12/18 17:59 STATUS: SANKET RE #: [id number] ZACHARIAH: 03/12/18 13:[address]: Nan Solano DEPT: Surgical Specimen RECD BY: Tracey Julian ENTERED: 03/12/18 18:01 SP TYPE: STOMACH OTHR DR: Lila Ricardo Tissues: 1 - BIOPSY BOWEL 2 - STOMACH BIOPSY 3 - ESOPHAGUS BIOPSY Procedures: GROSS AND MICRO LEVEL 4 IMMUNOPEROXIDASE STAIN Comments: [id number]
[2018-03-12 14:03] VITALS: BP 159/69; PULSE 75; RESP 18; TEMP 37.2; O2SAT 96
== END 2018-03-12 14:22 | disposition home or self-care (01) ==
PROVIDERS: PCP Nurse Practitioner Family; Visit Provider Surgery
PROC: 0DJ68ZZ Inspection of Stomach, Via Natural or Artificial Opening Endoscopic (ICD-10-PCS; CPT 43235; principal; 2018-03-12 13:00)
DX: C16.3 Malignant neoplasm of pyloric antrum (principal); C16.0 Malignant neoplasm of cardia; K44.9 Diaphragmatic hernia without obstruction or gangrene; R68.81 Early satiety; I10 Essential (primary) hypertension; K21.9 Gastro-esophageal reflux disease without esophagitis
CPT/HCPCS: 43239; 88305; 88361

== ENCOUNTER 2018-03-27 16:24 | Emergency (ER) | payer OTHER, SELFPAY ==
[2018-03-27] VITALS (12 sets, daily range): BP systolic 72–160; BP diastolic 12–69; PULSE 0–136; RESP 11–57; O2SAT 77–100
--- NOTE | 2018-03-27 17:00 | DI.RAD_ITS ---
SYMPTOM/DIAGNOSIS: CARDIAC ARREST PORTABLE AP CHEST: Comparison is made with 03/02/18. An endotracheal tube is seen with the tip at the level of the clavicles. Leads overlie the chest. There is a right internal jugular catheter with the tip obscured by overlying leads however the tip is likely in the lower SVC. There are bilateral diffuse patchy densities consistent with pulmonary edema. IMPRESSION: Pulmonary edema. Satisfactory positioning of endotracheal tube and right internal jugular catheter.
--- NOTE | 2018-03-27 17:39 | DI.VRAD_ITS ---
EXAM: XR Chest, 1 View EXAM DATE/TIME: 03/27/2018 5:17 PM CLINICAL HISTORY: 77 years old, female; Condition or disease; Cardiovascular condition or disease; Cardiac arrest TECHNIQUE: XR of the chest, 1 view. COMPARISON: SC XR CHEST 2V PA LATERAL 03/02/2018 10:33 PM FINDINGS: Tubes, catheters and devices: Right IJ central venous catheter present with tip superimposed over the mid to lower SVC. Endotracheal tube present with tip approximately 6 cm above the dennis. Lungs: Diffuse bilateral hazy and multifocal patchy densities are present and consistent with diffuse bilateral pulmonary edema. Superimposed infection is not excluded. Pleural space: Unremarkable. No pleural effusion. No pneumothorax. Heart/Mediastinum: Unremarkable. No cardiomegaly. Bones/joints: Unremarkable. IMPRESSION: 1. Diffuse bilateral airspace disease consistent with edema. 2. Right IJ central venous catheter tip superimposed over the mid lower SVC. No pneumothorax. 3. Endotracheal tube tip approximately 6 cm above the dennis. Dictated and Authenticated by: Delmar Melchor MD. Ordering:GIANCARLO Herrera MD
--- NOTE | 2018-03-27 19:44 | NUR.NOTE ---
Nursing Note:[facility] notified at 194 of patients Demise.
--- NOTE | 2018-03-27 20:32 | W.ED.GENAD ---
Discharge Plan Disposition Patient Disposition: Discharge Details Chief Complaint: CodeBlue Clinical Impression: Cardiac arrest Primary Care Provider: Lila Ricardo ED Provider: Javier Gaston Discharge Data Date/Time: 03/27/18 17:25 Discharge Date/Time-TO BE ENTERED AT DEPARTURE: 03/27/18 17:36 Medical Decision Making This is a 77-year-old female with a past medical history of abdominal cancer who is receiving treatments at the cancer center here in [facility]. Unfortunately her just had a massive heart attack yesterday and was life flighted down to [facility]. She has been under a notable amount of stress because of this. Today while at the [facility] before receiving treatments she syncopized, vomiting, and then went into cardiopulmonary arrest. Compressions were immediately started by bystanders and an AED was placed. 2 shocks were given, EMS performed high-quality CPR in the field for 15 minutes upon their arrival, after multiple rounds of epinephrine were given and no evidence of [place] was achieved CPR was continued and the patient was brought to the ER for further evaluation and management. While in the emergency department the patient initially had an IO in place. Medications were initially administered through this. High-quality CPR was continued, multiple rounds of epinephrine were administered per ACLS protocol. 1 dose of calcium gluconate and bicarb were also administered. 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 TPA was administered per massive PE protocol. During this time the patient did have an episode of ROSC, the patient was started on a dirty epinephrine drip, and during this moment of pause a right IJ central line was placed. This location was chosen because the patient had notable and massive defecation from her bowels, and the right and left groin were inappropriate for placement of a femoral central line. Unfortunately shortly after this episode of ROSC the patient again went into cardiac arrest. She became pulseless and high-quality CPR was restarted. We again underwent multiple rounds of epinephrine administration and continued ACLS protocol. After roughly an additional 15 minutes of CPR patient again had an episode of ROSC as confirmed by limited bedside cardiac ultrasound. During this time it was noted that there was a cuff leak on the patient's endotracheal tube. Utilizing a bougie the endotracheal tube was replaced. It was secured in place with no complications. Unfortunately after roughly 10-12 minutes of spontaneous circulation patient again slipped into cardiopulmonary arrest. Family was brought in at this time, the scenario was discussed with them in great detail. We continued with high quality CPR, multiple doses of epinephrine, at this time bedside ultrasound during pulse checks demonstrated asystole with no organized or an organized cardiac rhythm or movement, she showed no signs of tension pneumothorax on bedside ultrasound or clinical exam, and no evidence of hematoma in the area of placement of the right IJ. The patient's pupils continued to be fixed and dilated. After 15 additional minutes of high-quality CPR of well over 1 hour of total resuscitation efforts, family requested that resuscitation efforts be held. Desire was to cause no more harm or discomfort or trauma to the patient. Respecting the family's wishes and with the family members that were present being the designated power of patent attorney's, CPR was stopped. Repeat evaluation demonstrated no neurologic response, fixed and dilated pupils, negative corneal response, no signs of life on exam. Final portable bedside ultrasound demonstrated no cardiac activity whatsoever, and a rhythm strip showing asystole. Family's wishes were to cremate the patient and they did not want any autopsy. I discussed this with the certified medical coding specialist Harshad, and he agrees with this plan, does not think any autopsy is indicated at this time. I spent a long time with family discussing what had happened, offering resources, and answering questions. All questions were answered. I feel the cause of the patient's tach was most likely multifactorial from her malignancy, history of cardiac disease, other multiple risk factors, and potential luminary embolism. Procedure: Internal Jugular Central Venous Catheter Indication: Hemodynamic monitoring/Intravenous access PROCEDURE SUMMARY: A time-out was performed. The patient?s neck region was prepped and draped in sterile fashion using chlorhexidine scrub. The internal jugular vein was accessed under ultrasound guidance using a finder needle.Venous blood was withdrawn. A guidewire was advanced through the needle. A small incision was made with a 10 blade scalpel and the dilator was advanced over the guidewire until appropriate dilation was obtained. The dilator was removed and a triple lumen catheter was advanced over the guidewire and secured into place with 2 simple interrupted sutures. At time of procedure completion, all ports aspirated and flushed properly. Post-procedure x-ray shows the tip of the catheter within the superior vena cava. ESTIMATED BLOOD LOSS: 5ml?s The patient tolerated the procedure well there were no complications. Procedure: Endotracheal Intubation Indication: Respiratory Distress A time-out was completed verifying correct patient, procedure, site, positioning, and special equipment if applicable. The patient was placed in a flat position. There was a cuff leak noted in the previous endotracheal tube placed by paramedics. Flick occurred most likely secondary to prolonged CPR. A bougie was placed through the endotracheal tube, a the tube was removed, and a 7 oh tube was immediately replaced over the bougie. The bulb was inflated, and the tube was secured. Colorimetric change was visualized on the CO2 meter. Breath sounds were heard in both lung craven equally. The endotracheal tube was placed at 23 cm, measured at the teeth. A chest x-ray was ordered to assess for pneumothorax and verify endotrachealtube placement. No pneumothorax was seen and tube was in good position. The patient tolerated the procedure well and there were no complications. HPI General Date/Time Provider Initiated Documentation: 03/27/18 16:35. HPI Narrative: This is a 77-year-old female with a past medical history of abdominal cancer, gastritis, current DVT per family, no active anticoagulation medication use, who is currently undergoing chemotherapy at the [facility] center. She presents today for cardiac arrest. Bystanders and EMS report that the patient was at the [facility] about to receive her medications when she suddenly syncopized vomited and had both a cardiac and respiratory arrest. Per bystanders and EMS CPR was immediately started, AEDs were placed, she received 2 shocks by the AED. When EMS arrived the patient was in a combination of asystole and PEA. Over the course of 15 minutes multiple rounds of epinephrine were given, and she continued to oscillate between PEA and asystole. The patient was intubated in the field, she was then brought to the emergency department for further management. History is limited secondary to the patient's current conditions, however family denies any new medication changes or any other acute issues. Of note the patient's did suffer from a massive heart attack just last night, and was sent to [facility] for this. No other modifying factors at this time. Related Data Home Medications Medication Instructions Recorded Confirmed [id number] Complex 1 ea PO BID 06/18/12 03/12/18 Ventolin HFA 2 puff INHALATION PRN PRN 06/18/12 03/12/18 albuterol sulfate 1.25 mg INHALATION PRN PRN 06/18/12 03/12/18 hydrochlorothiazide 25 mg PO QAM 06/18/12 03/12/18 metoprolol succinate 100 mg PO DAILY 06/18/12 03/12/18 omega-3 fatty acids-fish oil [Fish 1 ea PO TID 06/18/12 03/12/18 Oil] diltiazem HCl 120 mg PO DAILY tab-cap 01/18/13 03/12/18 Citalopram Hydrobromide 40 mg PO DAILY tab-cap 04/02/17 03/12/18 [Citalopram HBr] loratadine 10 mg PO DAILY PRN tab-cap 04/02/17 03/12/18 meclizine 12.5 mg PO PRN 04/02/17 03/12/18 ciprofloxacin 250 mg tablet 250 mg PO BID #20 tab 03/02/18 03/12/18 gabapentin 300 mg PO TID 03/02/18 03/12/18 losartan 100 mg PO DAILY 03/02/18 03/12/18 pantoprazole [Protonix] 40 mg PO BID #60 tab 03/12/18 Previous Rx's Medication Instructions Recorded ciprofloxacin 250 mg tablet 250 mg PO BID #20 tab 03/02/18 pantoprazole [Protonix] 40 mg PO BID #60 tab 03/12/18 Allergies Allergy/AdvReac Type Severity Reaction Status Date / Time Sulfa (Sulfonamide Allergy Unknown Verified 03/12/18 12:08 Antibiotics) oxycodone HCl [From Percocet] AdvReac Dizziness/L Verified 03/12/18 12:08 ightheade zonisamide [From Zonegran] AdvReac Nausea Verified 03/12/18 12:08 General MAGALI: 3 Review of Systems Review of Systems All systems reviewed & are unremarkable except as noted in HPI and below PFSH Social History Smoking/Tobacco Use Status: Former Tobacco Use Exam Narrative Exam Narrative: GEN: unresponsive, in extremis SKIN: pale, cool NECK: no signs of trauma HENT: normocephalic atraumatic, pupils are round dilated and fixed. 6 mm bilaterally. No corneal reflex. CV: PEA, no pulses, CPR in progress RESP: no spontaneous respirations, intubated ABD: soft, self stool defecation noted. MSK: no spontaneous movements, no obvious deformity BACK: no obvious trauma NEURO: unresponsive, absent pupillary reflex, corneal reflex, gag, and no spontaneous movements PSYCH: unresponsive Course Vital Signs Pulse 97 H 03/27/18 16:29 Blood Pressure 160/69 H 03/27/18 16:29 Pulse 133 H 03/27/18 17:27 Pulse 0 L 03/27/18 17:30 Respiratory Rate 25 H 03/27/18 17:30 Blood Pressure 77/16 L 03/27/18 17:27 Blood Pressure Mean 21 03/27/18 17:27 Pulse Oximetry 100 03/27/18 17:30 Respiratory End-tidal CO2 18 03/27/18 17:20 Fraction of Inspired Oxygen (FIO2) 100 03/27/18 16:39
--- NOTE | 2018-03-27 23:27 | NUR.NOTE ---
Addendum entered by Cailin Shipley 04/02/18 16:08: -The only medication given through the Central line was at 1708 1000 ML of lactated Ringers in the white port. -All EPI was given IVP thought the [facility] IO site. - Patient came into the facility with a 45mm IO in the E started by [facility], and a 20 G IV in the LFA that was indwelling prior to calex's arrival on scene. THe only medication infused through the 20 in the LFA was the TPA. See prior note ( started at 1720) Infusion ended at time of 1736. - At 1635 a dirty EPI drip was made with a L of NS and 1 amp of EPI as charted in original note. This was run as a bolus in the [facility] IO site as a bolus. Bolus stopped at time of 1736. - All medications were IVP Present at this code was Xochitl Harding, Byron Harding, Cailin Shipley, Estefani Guaman, Dr Gaston, Natan Hobbs CHIEF ELECTRICIAN, Members of [facility], Clarence Payne RT. Original Note: Nursing Note: CPR continued in the ER 1626: 1 amp Bi Carb [facility] IO site 1628: 1 amp calcium Pulse check shows PEA 1628: 1 amp EPI 1631: Pulse present femoral and carotid 1635: NS infused in IO site [facility] with 1 AMP of EPI current hr of 112 and BP of 160/69 EKG was attempted 1642: Patient lost a pulse and became Asystolic, CPR was resumed at this time. 1645: Pulse was checked at this time and a round of EPI was given 1648 : pulse check no rhythm at this time CPR resumed 1650: pulse check PEA 1 amp of EPI was given. 1652: pulse check PEA no pulse felt CPR resumed 1654: pulse check PEA CPR resumed 1 AMP of EPI given 1656: pulse check, pulse present at this time cpr stopped irregular rhythm. 1700: central line being placed by provider 1707: central line triple lumen placed in right upper chest complete 1714: Attempted to place OGT with difficulty, ET tubes balloon compromised 1719: TPA bolus given at this time in LFA 20 G IV and infusion was started over an hr at 1720, pulses still present, patients heart rates is irregular on the monitor. 1725: Patient lost a pulse and CPR was resumed at this time. 1 mg of EPI was given in the IO LLE site 1729: pulse check, 1 mg of epi given, suction in airway performed 1730: New endotracheal tube 7.0 placed over BUGGE 1733: ET is placed and seccured 1734: Ultrasound used to look for cardiac activity none seen at this time CPR resumed. Blood is comming from the ET tube at this time 1735 : pulse check performed with palpation and ultrasound no cardiac activity seen or felt 1736: Dr. Gaston called time of .
== END 2018-03-27 17:36 | disposition expired ==
PROVIDERS: Emergency Provider Student in an Organized Health Care Education/Training Program; PCP Nurse Practitioner Family
DX: I46.9 Cardiac arrest, cause unspecified (principal); C16.0 Malignant neoplasm of cardia; C16.3 Malignant neoplasm of pyloric antrum; N18.3 Chronic kidney disease, stage 3 (moderate); I12.9 Hypertensive chronic kidney disease with stage 1 through stage 4 chronic kidney disease, or unspecified chronic kidney disease
CPT/HCPCS: 31500; 36556; 80053; 82805; 92950; 96360; 96361; 96365; 96374; 96375; 96376; 99291; 71045; 83735; 84484; 85025; 85610; 85730